=== PATIENT | female | born 1990 | race Two or more races ===

== ENCOUNTER 2017-12-02 08:50 | Inpatient (IN) | payer OTHER ==
[2017-12-02] MEDS ORDERED: MISOPROSTOL 200 MCG TAB PR ×2 (09:30→17:00)
[2017-12-02] MEDS ORDERED: METHYLERGONOVINE 0.2 MG INJ IM ×2 (09:30→17:00)
[2017-12-02] MEDS ORDERED: CARBOPROST 250 MCG INJ IM ×2 (09:30→17:00)
[2017-12-02] MEDS ORDERED: CEFAZOLIN 2 GM/50 ML (PMX) 50 ML IV (09:30)
[2017-12-02 09:52] LABS: ADD MAN DIFF? NO
[2017-12-02] MEDS: LACTATED RINGER'S 1,000 ML IV ×3 (09:52→18:58)
[2017-12-02 09:56] LABS: BASOPHILS % 0.3 % (0.0-2.0); EOSINOPHILS % 0.3 % (0.0-7.0); HEMOGLOBIN 12.5 g/dl (12.0-16.0); LYMPHOCYTES # 2.5 10^3/ul (0.8-2.9); LYMPHOCYTES % 18.9 % (15.0-51.0); MEAN CORPUSCULAR HEMOGLOBIN 30.6 pg (29.0-33.0); MEAN CORPUSCULAR HGB CONC 33.8 g/dl (32.0-37.0); MEAN CORPUSCULAR VOLUME 90.7 fl (82.0-101.0); MEAN PLATELET VOLUME 10.8 fl (7.4-10.4); MONOCYTE # 0.9 10^3/ul (0.3-0.9); MONOCYTES % 6.8 % (0.0-11.0); NEUTROPHIL # 9.5 10^3/ul (1.6-7.5); NEUTROPHILS % 72.6 % (39.0-77.0); PLATELET COUNT 321 10^3/UL (140-415); RED BLOOD COUNT 4.08 10^6/ul (4.20-5.40); RED CELL DISTRIBUTION WIDTH 12.7 % (11.5-14.5)
[2017-12-02 10:18] LABS: INR 1.11; PROTIME 14.5 Sec (11.9-14.9); PT RATIO 1.1
[2017-12-02 11:52] LABS: HEPATITIS B SURFACE ANTIGEN NEGATIVE (NEGATIVE)
[2017-12-02] MEDS ORDERED: METOCLOPRAMIDE 10 MG INJ (13:02)
[2017-12-02] MEDS ORDERED: ONDANSETRON 4 MG INJ (13:02)
[2017-12-02] MEDS ORDERED: KETOROLAC 30 MG INJ (13:02)
[2017-12-02] MEDS ORDERED: morphine SULFATE/PF (10 MG/10 ML) INJ (13:02)
[2017-12-02] MEDS ORDERED: BUPIVACAINE 0.75%/DEXT (SPINAL) 2 ML INJ (13:02)
[2017-12-02] MEDS ORDERED: CEFAZOLIN 1 GM INJ (13:02)
[2017-12-02] MEDS ORDERED: NALOXONE (0.4 MG/ML) INJ IV (14:30)
[2017-12-02] MEDS ORDERED: KETOROLAC 30 MG INJ IV (14:30)
[2017-12-02] MEDS ORDERED: morphine (1 MG/ML) 10ML SYRINGE IV ×3 (14:30)
[2017-12-02] MEDS ORDERED: DIPHENHYDRAMINE 50 MG INJ IV (14:30)
[2017-12-02] MEDS ORDERED: morphine 2 MG INJ IV ×3 (14:30)
[2017-12-02] MEDS ORDERED: ONDANSETRON 4 MG INJ IV ×2 (14:30)
[2017-12-02 14:56] LABS: RAPID PLASMA REAGIN NONREACTIVE (NR)
[2017-12-02] MEDS: OXYTOCIN 30 UNITS/LR 500 ML IV (15:03)
[2017-12-02] MEDS ORDERED: OXYTOCIN 30 UNITS/LR 500 ML IV ×2 (16:46→17:00)
[2017-12-02] MEDS ORDERED: LANOLIN 7 GM TUBE TOP (17:00)
[2017-12-02] MEDS: CEFAZOLIN 1 GM/50 ML (PMX) 50 ML IVPB (23:00)
[2017-12-03] MEDS: LACTATED RINGER'S 1,000 ML IV ×3 (03:05→12:27)
[2017-12-03] MEDS: ACETAMINOPHEN 500 MG TAB PO (06:17)
[2017-12-03 08:27] LABS: ADD MAN DIFF? NO
[2017-12-03 08:33] LABS: WHITE BLOOD COUNT 13.8 10^3/ul (4.8-10.8)
[2017-12-03 08:33] LABS: BASOPHILS % 0.2 % (0.0-2.0); EOSINOPHILS % 0.3 % (0.0-7.0); HEMATOCRIT 30.8 % (37.0-47.0); HEMOGLOBIN 10.3 g/dl (12.0-16.0); LYMPHOCYTES # 1.6 10^3/ul (0.8-2.9); LYMPHOCYTES % 11.8 % (15.0-51.0); MEAN CORPUSCULAR HEMOGLOBIN 30.3 pg (29.0-33.0); MEAN CORPUSCULAR HGB CONC 33.4 g/dl (32.0-37.0); MEAN CORPUSCULAR VOLUME 90.6 fl (82.0-101.0); MONOCYTES % 7.4 % (0.0-11.0); NEUTROPHILS % 79.6 % (39.0-77.0); PLATELET COUNT 264 10^3/UL (140-415); RED CELL DISTRIBUTION WIDTH 12.9 % (11.5-14.5)
[2017-12-03] MEDS: GENTAMICIN 120 MG/NS (PMX) 100 ML IVPB ×2 (09:01→17:05)
[2017-12-03] MEDS: SENNA/DOCUSATE NA (8.6MG/50MG) TAB PO ×2 (09:59→21:12)
[2017-12-03] MEDS: CEFAZOLIN 2 GM/50 ML (PMX) 50 ML IVPB ×2 (10:41→19:07)
[2017-12-03] MEDS: KETOROLAC 30 MG INJ IV (12:22)
[2017-12-03] MEDS ORDERED: HYDROCODONE/APAP (5/325) TAB PO ×2 (14:30)
[2017-12-03] MEDS: IBUPROFEN 600 MG TAB PO (18:20)
[2017-12-03] MEDS: OXYCODONE/ACETAMINOPHEN (5/325) TAB PO (21:13)
[2017-12-04] MEDS: IBUPROFEN 600 MG TAB PO ×5 (00:04→17:45)
[2017-12-04] MEDS: GENTAMICIN 120 MG/NS (PMX) 100 ML IVPB ×2 (00:59→08:51)
[2017-12-04] MEDS: CEFAZOLIN 2 GM/50 ML (PMX) 50 ML IVPB (02:59)
[2017-12-04] MEDS: LACTATED RINGER'S 1,000 ML IV (07:45)
[2017-12-04] MEDS: SENNA/DOCUSATE NA (8.6MG/50MG) TAB PO ×2 (08:52→20:30)
[2017-12-04] MEDS: OXYCODONE/ACETAMINOPHEN (5/325) TAB PO ×2 (10:31→20:31)
[2017-12-04 11:04] LABS: ADD MAN DIFF? NO
[2017-12-04 11:10] LABS: WHITE BLOOD COUNT 12.1 10^3/ul (4.8-10.8)
[2017-12-04 11:10] LABS: BASOPHILS % 0.2 % (0.0-2.0); EOSINOPHILS # 0.2 10^3/ul (0.0-0.5); EOSINOPHILS % 1.7 % (0.0-7.0); HEMATOCRIT 29.9 % (37.0-47.0); LYMPHOCYTES # 1.9 10^3/ul (0.8-2.9); LYMPHOCYTES % 15.6 % (15.0-51.0); MEAN CORPUSCULAR HEMOGLOBIN 31.1 pg (29.0-33.0); MEAN CORPUSCULAR HGB CONC 33.4 g/dl (32.0-37.0); MEAN CORPUSCULAR VOLUME 92.9 fl (82.0-101.0); MEAN PLATELET VOLUME 10.3 fl (7.4-10.4); MONOCYTE # 0.8 10^3/ul (0.3-0.9); MONOCYTES % 6.2 % (0.0-11.0); NEUTROPHIL # 9.1 10^3/ul (1.6-7.5); NEUTROPHILS % 75.5 % (39.0-77.0); PLATELET COUNT 282 10^3/UL (140-415); RED BLOOD COUNT 3.22 10^6/ul (4.20-5.40); RED CELL DISTRIBUTION WIDTH 13.1 % (11.5-14.5)
[2017-12-05] MEDS: IBUPROFEN 600 MG TAB PO ×3 (05:40→12:36)
[2017-12-05] MEDS: DIPHTH/TET/ACEL PERTUSS (ADULT) 0.5 ML VIAL IM* (09:00)
[2017-12-05] MEDS: SENNA/DOCUSATE NA (8.6MG/50MG) TAB PO (09:09)
[2017-12-05] MEDS: OXYCODONE/ACETAMINOPHEN (5/325) TAB PO (09:09)
== END 2017-12-05 13:08 | disposition home or self-care (01) | DRG 765 ==
LOC: L-D 08:50 → PP1 18:08
PROVIDERS: Obstetrics & Gynecology
PROC: 10D00Z1 Extraction of Products of Conception, Low, Open Approach (ICD-10-PCS; principal; 2017-12-02 12:30)
DX: O34.211 Maternal care for low transverse scar from previous cesarean delivery (principal); O86.4 Pyrexia of unknown origin following delivery; Z3A.39 39 weeks gestation of pregnancy; Z37.0 Single live birth
CPT/HCPCS: 85025; 85610; 85730; 86592; 86850; 86900; 86901; 87040; 87086; 87340; 99464